=== PATIENT | female | born 1950 | race African-American/Black ===

== ENCOUNTER 2016-12-08 12:22 | Emergency (ER) | payer MEDICARE, SELFPAY ==
[2016-12-08] MEDS ORDERED: Acetaminophen 500 MG TAB ONE (12:46)
--- NOTE | 2016-12-08 13:31 | RAD ---
FOUR VIEWS RIGHT KNEE: Indication: Right knee pain. Comparison: None. FINDINGS: Enthesopathic change seen at the anterior patella. No acute fracture or subluxation is evident. Ther e are vascular calcifications within the posterior soft tissues. IMPRESSION: No acute right knee abnormality. Mild osteoarthrosis of the right knee. POS: [facility]
[2016-12-08] MEDS ORDERED: traMADol HCl 50 MG TAB ONE (13:40)
--- NOTE | 2016-12-08 13:55 | ULT ---
RIGHT LOWER EXTREMITY DOPPLER VENOUS ULTRASOUND: History: Pain and edema in the right knee for one month. Technique: Olivo scale, color Doppler, and vascular duplex with spectral analysis was performed of the deep veno us structures of both lower extremities. The common femoral vein, superficial femoral vein, poplitea l vein, posterior tibial vein, proximal greater saphenous, and proximal profunda veins were assessed bilaterally. FINDINGS: Normal compression, flow, and augmentation seen within the deep venous structures of the right lower extremity. IMPRESSION: No evidence of DVT within the right lower extremity. POS: [facility]
== END 2016-12-08 13:44 | disposition home or self-care (01) ==
LOC: ERS 12:22
DX: M25.561 Pain in right knee (principal); I10 Essential (primary) hypertension; F17.210 Nicotine dependence, cigarettes, uncomplicated
CPT/HCPCS: 99406

== ENCOUNTER 2019-02-13 08:14 | Emergency (ER) | payer MEDICARE ==
[2019-02-13] MEDS ORDERED: Ondansetron PF 4 MG/2 ML Vial ONE (09:07)
[2019-02-13] MEDS ORDERED: Morphine 4 MG/ML VIAL ONE ×2 (09:07→13:14)
[2019-02-13 09:41] LABS: #Eosinphils 0.1 thou/uL (0.0-0.7); #Lymphocytes 1.3 thou/uL (1.20-3.40); #Monocytes 0.4 thou/uL (0.11-0.59); #Neutrophils 2.5 thou/uL (1.40-6.50); %Basophils 0.4 % (0.0-1.0); %Eosinophils 1.8 % (0.0-10.0); %Lymphocytes 30.7 % (21.0-51.0); %Monocytes 9.7 % (0.0-10.0); %Neutrophils 57.5 % (42.0-75.0); Hemoglobin 13.1 g/dL (12.0-16.0); Mean Corpuscular HGB CONC 33.6 g/dL (32.0-36.0); Mean Corpuscular Hemoglobin 32.6 pg (27.0-31.0); Mean Corpuscular Volume 97.1 fL (78.0-98.0); Mean Platelet Volume 7.9 fL (7.4-10.4); Platelet Count 249 thou/uL (130-400); RBC Distribution Width 12.1 % (11.5-14.5); Red Blood Cell (RBC) Count 4.02 mill/uL (4.20-5.40); White Blood Cell (WBC) Count 4.3 thou/uL (4.8-10.8)
[2019-02-13 09:57] LABS: ALT (SGPT) 70 U/L (8-55); AST (SGOT) 58 U/L (5-34); Albumin 4.2 g/dL (3.4-4.8); Alkaline Phosphatase 90 U/L (40-110); Anion Gap 13 mmol/L (10-20); BUN (Urea Nitrogen) 20 mg/dL (9.8-20.1); Bilirubin, Total 0.3 mg/dL (0.2-1.2); Calc. Creatinine Clearance 0 mL/min (70-130); Calcium 9.6 mg/dL (7.8-10.44); Carbon Dioxide 29 mmol/L (23-31); Chloride 98 mmol/L (98-107); Estimated GFR-MDRD 61; Globulin 3.3 g/dL (2.4-3.5); Glucose 104 mg/dL (80-115); Potassium 4.7 mmol/L (3.5-5.1); Protein, Total 7.5 g/dL (6.0-8.3); Sodium 135 mmol/L (136-145)
--- NOTE | 2019-02-13 12:01 | MRI ---
MRI thoracic spine with and without contrast: DATE: 02/13/2019 HISTORY: 68-year-old female with extreme mid back pain. COMPARISON: None available FINDINGS: There is edema and enhancement of soft tissues posterior to the dorsal lumbar fascia, centered at mid line, beginning at approximately the T11 level, and extending down the lumbar levels to the lowest image visualized on the sagittal sequences,, at least L2-3. The full inferior extent of this edema is not included. There is no abnormal signal, mass, or abnormal enhancement, involving the intramedullary, extramedull lourdes-intradural, extradural, intraosseous, or perivertebral, spaces. Vertebral body heights are maintained. No significant focal disc herniation. No central stenosis or neural foraminal stenosis at any level. No cord impingement or nerve root impingement. No syrinx. IMPRESSION: 1. Edema with enhancement in the posterior superficial soft tissues: Posterior subcutaneous fat poste rior to the dorsal lumbar fascia at midline in the lumbar levels, encroaching upon lower thoracic levels. Nonspecific and incompletely imaged. 2. Otherwise normal thoracic spine MRI.
--- NOTE | 2019-02-13 12:26 | MRI ---
Lumbar spine MRI with and without contrast: 02/13/2019 COMPARISON: None available HISTORY: Back surgery 01/26/2019, pain and lower extremity radiculopathy TECHNIQUE: Multiplanar multisequence MR imaging of the lumbar spine obtained with and without contras t FINDINGS: There are bilateral pedicle screws with vertically oriented interlocking rods at the L4-5 l evel, incompletely assessed on this examination secondary to artifact. An intervertebral disc device is noted at L4-5 as well. The sagittal STIR imaging demonstrates no focal area of osseous marrow edema. There is increased STIR signal within the facet joints bilaterally at the L4-5 level, right greater than left. On the basis of 5 lumbar type vertebral bodies, conus medullaris terminates at the T12-L1 level. There is a small nonspecific fluid collection within the subcutaneous fat posterior to the paraspinal musculature on the left measuring 1.7 x 2.0 cm at the axial level of the L3 vertebral body, likely on the basis of a nonspecific postoperative fluid collection it demonstrates mild rim enhancement. Th is could represent sterile or infected fluid. T12-L1: Mild bilateral facet hypertrophy. No central canal or neural foraminal stenosis. L1-2: Mild bilateral facet hypertrophy. No significant central canal or neural foraminal stenosis. L2-3: Mild bilateral facet hypertrophy and hypertrophy of the ligamentum flavum. No significant centr al canal or neural foraminal stenosis L3-4: Mild bilateral facet hypertrophy. Disc desiccation. Mild bilateral neural foraminal stenosis. N o significant central canal stenosis. L4-5: There is disc space narrowing and disc desiccation with minimal disc bulge. Mild bilateral face t hypertrophy and hypertrophy of ligamentum flavum. No significant central canal stenosis or neural foraminal stenosis. There is a nonspecific T2 hyperintense rim-enhancing lesion which is at the axial level of the L4-5 i ntervertebral disc space abutting the lateral aspect of the intervertebral disc on the left, inseparable from the medial aspect of the left psoas muscle. This T2 hyperintense lesion measures 1.7 x 1.4 by approximately 1.2 cm. There is subtle peripheral rim enhancement. There is mild edema and enhancement within the adjacent left psoas muscle. Evaluation of the intervertebral disc as well as t he L4 and L5 vertebral bodies is a limited secondary to postoperative hardware and related artifact but no convincing evidence for discitis or osteomyelitis is seen. L5-S1: There is disc space narrowing and disc desiccation with mild disc bulge. No significant centra l canal stenosis. Bilateral facet hypertrophy with mild bilateral neural foraminal stenosis. The imaged retroperitoneal structures demonstrate no acute findings. IMPRESSION: Postoperative and degenerative change within the lumbar spine as detailed above. Nonspeci fic fluid collection is noted on the left inseparable from the left psoas muscle abutting the lateral aspect of the intervertebral disc at L4-5. This demonstrates subtle peripheral rim enhancemen t and there is mild edema and associated enhancement of the psoas muscle. This could an infected fluid collection. Clinical correlation is essential. There is a subcutaneous fluid collection posteri scotty on the left as well. Of note, there is no convincing evidence for discitis/osteomyelitis although evaluation is limited secondary to artifact.
== END 2019-02-13 14:18 | disposition home or self-care (01) ==
LOC: ERS 08:14
DX: M54.5 Low back pain (principal); I10 Essential (primary) hypertension; F17.210 Nicotine dependence, cigarettes, uncomplicated; Z79.82 Long term (current) use of aspirin; Z79.899 Other long term (current) drug therapy
CPT/HCPCS: 36415; 72157; 72158; 80053; 85025; 85652; 86140; 96361; 96374; 96375; 96376; J2270; J2405

== ENCOUNTER 2021-10-24 10:02 | Outpatient (CLI) | payer MEDICARE | END 2021-10-24 10:03 | disposition home or self-care (01) | LOC: BICMAMMO 10:02 | PROVIDERS: ATTEND Family Medicine | DX: Z12.31 Encounter for screening mammogram for malignant neoplasm of breast (principal) | CPT/HCPCS: 77063; 77067 ==

== ENCOUNTER 2022-02-16 10:04 | Emergency (ER) | payer MEDICARE ==
[2022-02-16 10:50] LABS: #Eosinphils 0.1 thou/uL (0.0-0.7); #Lymphocytes 1.6 thou/uL (1.20-3.40); #Monocytes 0.4 thou/uL (0.11-0.59); #Neutrophils 2.1 thou/uL (1.40-6.50); %Basophils 0.6 % (0.0-1.0); %Eosinophils 3.5 % (0.0-10.0); %Lymphocytes 37.9 % (21.0-51.0); %Monocytes 8.8 % (0.0-10.0); %Neutrophils 49.2 % (42.0-75.0); Hemoglobin 13.8 g/dL (12.0-16.0); Mean Corpuscular HGB CONC 33.4 g/dL (32.0-36.0); Mean Corpuscular Hemoglobin 33.6 pg (27.0-31.0); Mean Platelet Volume 9.2 fL (7.4-10.4); Platelet Count 147 10x3/uL (130-400); Red Blood Cell (RBC) Count 4.11 mill/uL (4.20-5.40); White Blood Cell (WBC) Count 4.3 10x3/uL (4.8-10.8)
[2022-02-16 11:07] LABS: ALT (SGPT) 41 U/L (8-55); AST (SGOT) 50 U/L (5-34); Albumin 3.8 g/dL (3.4-4.8); Alkaline Phosphatase 58 U/L (40-110); Anion Gap 17 mmol/L (10-20); BUN (Urea Nitrogen) 19 mg/dL (9.8-20.1); Bilirubin, Total 0.6 mg/dL (0.2-1.2); Calc. Creatinine Clearance 0 mL/min (70-130); Calcium 8.9 mg/dL (7.8-10.44); Carbon Dioxide 20 mmol/L (23-31); Chloride 105 mmol/L (98-107); Estimated GFR 34; Globulin 3.8 g/dL (2.4-3.5); Glucose 86 mg/dL (80-115); Potassium 3.8 mmol/L (3.5-5.1); Protein, Total 7.6 g/dL (5.8-8.1); Sodium 138 mmol/L (136-145)
[2022-02-16 11:09] LABS: Bilirubin Negative (Negative); Blood, Urine Negative (Negative); Clarity Clear (Clear); Glucose, Urine (Dipstick) Normal (Negative); Ketone, Urine Negative (Negative); Leukocyte Negative Leu/uL (Negative); Nitrite Negative (Negative); Protein, Urine (Dipstick) Negative (Neg-Trace); Urobilinogen Normal mg/dL (Less than 2); pH, Urine 5.5 (5.0-9.0)
[2022-02-16 11:54] LABS: SARS-CoV-2 NAA Rapid Test DETECTED (NotDetected)
== END 2022-02-16 12:59 | disposition home or self-care (01) ==
LOC: ERS 10:04
DX: U07.1 COVID-19 (principal); E86.0 Dehydration; D72.819 Decreased white blood cell count, unspecified; I10 Essential (primary) hypertension; F17.210 Nicotine dependence, cigarettes, uncomplicated; Z79.899 Other long term (current) drug therapy; Z79.82 Long term (current) use of aspirin
CPT/HCPCS: 0240U; 51701; 71045; 80053; 81003; 83605; 84484; 85025; 87040; 87077; 87149 ×2; 93005; 99285